=== PATIENT | female | born 1995 | race Two or more races ===

== ENCOUNTER 2018-06-05 14:12 | Inpatient (IN) | payer OTHER ==
[~2018-06-05] VITALS: Ht 165.1 cm; Wt 72.6 kg
[2018-06-05 14:33] VITALS: BP 131/78
--- NOTE | 2018-06-05 15:27 | Emergency Room Report ---
History of Present Illness General Chief Complaint: Pain Source: Patient Present Illness HPI Patient present with complaints of pain to the right lower rib cage area She reports that it has been ongoing for the past one week Patient reports that 2 different things happened she was hit with a knee in that same area 2 days before the pain came on Patient also reports having pain after working out at the gym Denies any lower abdominal pain denies any nausea or vomiting Denies any fevers or chills she has fairly specific discomfort to the right upper quadrant along with the lower lining of the rib cage Allergies: Coded Allergies: No Known Allergies (Unverified , 06/05/18) Patient History Past Medical History: see triage record Pertinent Family History: none Last Menstrual Period: now Reviewed Nursing Documentation: PMH: Agreed; PSxH: Agreed Nursing Documentation-PMH Past Medical History: No Stated History Review of Systems All Other Systems: negative except mentioned in HPI Physical Exam Vital Signs Date Time Temp Pulse Resp B/P (MAP) Pulse Ox O2 Delivery O2 Flow Rate FiO2 06/05/18 14:23 98.7 81 18 131/78 95 Room Air 98.8 Sp02 EP Interpretation: reviewed, normal General Appearance: well appearing, no apparent distress Head: normocephalic, atraumatic Eyes: bilateral eye PERRL, bilateral eye EOMI ENT: hearing grossly normal, normal pharynx Neck: supple Respiratory: lungs clear Cardiovascular #1: regular rate, rhythm, no edema Gastrointestinal: non tender Genitourinary: no CVA tenderness Musculoskeletal: back normal, other - Tender on palpation specific lower part of the mid right rib cage, no obvious ecchymosis Neurologic: alert, oriented x3 Skin: no rash Lymphatic: no adenopathy Medical Decision Making Diagnostic Impression: Primary Impression: Abdominal pain Additional Impression: evaluate appendicitis ER Course With the history exam and presentation, multiple differentials considered, including but not limited to appendicitis, gastritis, cholecystitis, diverticulitis Patient's white blood cell count is elevated CT imaging reveals an enlarged appendix with some stranding This would be concerning for appendicitis CT otherwise does not reveal any acute fractures On repeat examination patient has discomfort mainly in the right mid and upper abdominal region Given the elevated white blood cell count Given the patient's discomfort level she does require further surgical consultation Reviewing the CT with general surgery it does appear that the patient has a high riding appendix which could explain some of the discomfort in the mid abdomen as opposed to the right lower quadrant patient is admitted for further inpatient care and repeat evaluation, Labs Test 06/05/18 15:15 White Blood Count 13.0 K/UL (4.8-10.8) Red Blood Count 5.51 M/UL (4.20-5.40) Hemoglobin 14.3 G/DL (12.0-16.0) Hematocrit 45.4 % (37.0-47.0) Mean Corpuscular Volume 82 FL (80-99) Mean Corpuscular Hemoglobin 25.9 PG (27.0-31.0) Mean Corpuscular Hemoglobin Concent 31.4 G/DL (32.0-36.0) Red Cell Distribution Width 12.1 % (11.6-14.8) Platelet Count 393 K/UL (150-450) Mean Platelet Volume 6.8 FL (6.5-10.1) Neutrophils (%) (Auto) 78.9 % (45.0-75.0) Lymphocytes (%) (Auto) 13.3 % (20.0-45.0) Monocytes (%) (Auto) 6.5 % (1.0-10.0) Eosinophils (%) (Auto) 0.7 % (0.0-3.0) Basophils (%) (Auto) 0.7 % (0.0-2.0) Urine HCG, Qualitative Negative (NEGATIVE) Sodium Level 141 MMOL/L (136-145) Potassium Level 3.9 MMOL/L (3.5-5.1) Chloride Level 106 MMOL/L (98-107) Carbon Dioxide Level 26 MMOL/L (21-32) Anion Gap 9 mmol/L (5-15) Blood Urea Nitrogen 8 mg/dL (7-18) Creatinine 0.8 MG/DL (0.55-1.30) Estimat Glomerular Filtration Rate > 60 mL/min (>60) Glucose Level 99 MG/DL (74-106) Calcium Level 9.7 MG/DL (8.5-10.1) Total Bilirubin 0.3 MG/DL (0.2-1.0) Aspartate Amino Transf (AST/SGOT) 18 U/L (15-37) Alanine Aminotransferase (ALT/SGPT) 24 U/L (12-78) Alkaline Phosphatase 122 U/L (46-116) Total Protein 8.3 G/DL (6.4-8.2) Albumin 3.7 G/DL (3.4-5.0) Globulin 4.6 g/dL Albumin/Globulin Ratio 0.8 (1.0-2.7) Lipase 143 U/L (73-393) CT/MRI/US Diagnostic Results CT/MRI/US Diagnostic Results : Impression CT abdomen pelvis: Refer to report for full specific, enlarged appendix, stranding consideration for appendicitis Last Vital Signs Date Time Temp Pulse Resp B/P (MAP) Pulse Ox O2 Delivery O2 Flow Rate FiO2 06/05/18 14:33 98.8 18 131/78 95 Room Air 98.8 06/05/18 14:23 81 Status: improved Disposition: ADMITTED INPATIENT Condition: Serious Referrals: NOT CHOSEN IPA/,REFERRING (PCP) Brett Padilla DO Jun 05, 2018 15:27
[2018-06-05] MEDS ORDERED: Tylenol #3 tab (300mg/30mg) ORAL ONE (15:30)
[2018-06-05] MEDS ORDERED: Ketorolac 60mg Inj IM ONE (15:30)
[2018-06-05 15:38] LABS: BASOPHILS % (AUTO) 0.7 % (0.0-2.0); EOSINOPHILS % (AUTO) 0.7 % (0.0-3.0); HEMATOCRIT 45.4 % (37.0-47.0); HEMOGLOBIN 14.3 G/DL (12.0-16.0); LYMPHOCYTES % (AUTO) 13.3 % (20.0-45.0); MEAN CORPUSCULAR VOLUME 82 FL (80-99); MONOCYTES % (AUTO) 6.5 % (1.0-10.0); NEUTROPHILS % (AUTO) 78.9 % (45.0-75.0); PLATELET COUNT 393 K/UL (150-450); RED BLOOD COUNT 5.51 M/UL (4.20-5.40); RED CELL DISTRIBUTION WIDTH 12.1 % (11.6-14.8)
[2018-06-05 15:40] LABS: ANION GAP 9 mmol/L (5-15); BLOOD UREA NITROGEN 8 mg/dL (7-18); CALCIUM 9.7 MG/DL (8.5-10.1); CARBON DIOXIDE 26 MMOL/L (21-32); CHLORIDE 106 MMOL/L (98-107); CREATININE 0.8 MG/DL (0.55-1.30); POTASSIUM 3.9 MMOL/L (3.5-5.1); SODIUM 141 MMOL/L (136-145)
[2018-06-05 15:45] LABS: ALANINE AMINOTRANSFERASE 24 U/L (12-78); ALBUMIN 3.7 G/DL (3.4-5.0); ALBUMIN/GLOBULIN RATIO 0.8 (1.0-2.7); ALKALINE PHOSPHATASE 122 U/L (46-116); ASPARTATE AMINO TRANSFERASE 18 U/L (15-37); BILIRUBIN,TOTAL 0.3 MG/DL (0.2-1.0)
[2018-06-05 17:36] VITALS: BP 114/76
[2018-06-05] MEDS ORDERED: NAPROXEN250 MG ORAL (18:19)
[2018-06-05] MEDS ORDERED: ADVIL200 MG ORAL (18:19)
[2018-06-05 19:30] VITALS: BP 121/78
[2018-06-05 20:00] VITALS: BP 111/72
[2018-06-05 20:30] VITALS: BP 119/73
[2018-06-05] MEDS ORDERED: D5 1/2NS 1,000 ML IV SCH (20:37)
[2018-06-05] MEDS ORDERED: Morphine Sulfate 2mg/ml Inj IVP PRN (20:45)
[2018-06-05] MEDS ORDERED: Nitroglycerin Subl 0.4mg tab SL PRN (20:45)
[2018-06-05] MEDS ORDERED: Mylanta II UD 30ml ORAL PRN (20:45)
[2018-06-05] MEDS ORDERED: Miralax 17gm pkt ORAL PRN (20:45)
--- NOTE | 2018-06-05 21:09 | Consultation ---
History of Present Illness General Date patient seen: Jun 05, 2018 Chief Complaint: Pain Reason for Consultation: acute appendicitis Present Illness HPI 23 year old otherwise healthy female presents to ED with complaints of right sided abdominal pain. As per patient, she has had pain for 1 week that is not improving. States she was well 1 week ago until she sustained some trauma to her right thoracoabdominal area. Since pain with movement and while at the gym. Over the past 1-2 days has also had some abdominal discomfort and does recall some intermittent nausea but no emesis. She has had decreased appetite since as well. She and her mother decided that she should come in for evaluation. In ED noted to have leukocytosis with shift and CT scan with dilated appendix with periappendiceal stranding. surgery called to evaluate. patient seen, chart reviewed, patient examined. Allergies: Coded Allergies: No Known Allergies (Unverified , 06/05/18) Medication History Scheduled PRN Ibuprofen* (Advil*), 800 MG ORAL Q6H PRN for For Pain, (Reported) Naproxen* (Naprosyn*), 250 MG ORAL TWICE A DAY PRN for For Pain, (Reported) Patient History History Provided By: Patient, Medical Record, PMD Healthcare decision maker Resuscitation status Advanced Directive on File Past Medical/Surgical History Past Medical/Surgical History: (1) Acute appendicitis (2) Abdominal pain Review of Systems Constitutional: Denies: no symptoms, see HPI, chills, sweats, fever, malaise, weakness, other Eye: Denies: no symptoms, see HPI, eye pain, blurred vision, tearing, double vision, nose pain, nose congestion, acuity changes, discharge, other ENT: Denies: no symptoms, see HPI, ear pain, ear discharge, nose pain, nose congestion, throat pain, throat swelling, mouth pain, hearing loss, nasal discharge, other Respiratory: Denies: no symptoms, see HPI, cough, orthopnea, shortness of breath, stridor, wheezing, WHITAKER, sputum, other Cardiovascular: Denies: no symptoms, see HPI, chest pain, edema, palpitations, syncope, PND, other Gastrointestinal: Reports: abdominal pain, nausea Genitourinary: Denies: no symptoms, see HPI, discharge, dysuria, frequency, hematuria, pain, retention, incontinence, urgency, vag bleed/dc, other Musculoskeletal: Denies: no symptoms, see HPI, back pain, gout, joint pain, joint swelling, muscle pain, muscle stiffness, other Skin: Denies: no symptoms, see HPI, rash, change in color, change in hair/nails , dryness, lesions, other Psychiatric: Denies: no symptoms, see HPI, prior hx, anxiety, depressed feelings, emotional problems, SI, HI, hallucinations, other Neurological: Denies: no symptoms, see HPI, headache, numbness, paresthesia, seizure, tingling, tremors, focal weakness, syncope, dizziness, other Endocrine: Denies: no symptoms, see HPI, excessive sweating, flushing, intolerance to temperature, increased thirst, increased urine, unexplained weight loss, other Hematologic/Lymphatic: Denies: no symptoms, see HPI, anemia, blood clots, easy bleeding, easy bruising, swollen glands, diathesis, other Physical Exam General Appearance: WD/WN, no apparent distress, alert Lines, tubes and drains: peripheral HEENT: normocephalic, atraumatic, PERRL Neck: normal inspection Respiratory/Chest: lungs clear, normal breath sounds, no respiratory distress, no accessory muscle use, other - right lower thoracic rib tenderness Cardiovascular/Chest: normal rate, regular rhythm Abdomen: normal bowel sounds, non tender, soft, no organomegaly, no mass, other - discomfort in mid abdomen Extremities: normal inspection Skin Exam: normal pigmentation, warm/dry Neurologic: alert, oriented x 3 Last 24 Hour Vital Signs Date Time Temp Pulse Resp B/P (MAP) Pulse Ox O2 Delivery O2 Flow Rate FiO2 06/05/18 20:30 37.75577 68 18 119/73 100 Room Air 209.8 06/05/18 20:30 98.8 68 18 119/73 100 Room Air 98.8 06/05/18 19:30 98.5 72 18 121/78 98 Room Air 98.5 06/05/18 17:36 98.5 69 17 114/76 98 Room Air 98.5 06/05/18 16:33 98.5 06/05/18 16:04 98.5 06/05/18 15:34 98.8 06/05/18 15:34 98.8 06/05/18 14:33 98.8 18 131/78 95 Room Air 98.8 06/05/18 14:23 98.7 81 18 131/78 95 Room Air 98.8 Laboratory Tests Test 06/05/18 15:15 White Blood Count 13.0 K/UL (4.8-10.8) H Red Blood Count 5.51 M/UL (4.20-5.40) H Hemoglobin 14.3 G/DL (12.0-16.0) Hematocrit 45.4 % (37.0-47.0) Mean Corpuscular Volume 82 FL (80-99) Mean Corpuscular Hemoglobin 25.9 PG (27.0-31.0) L Mean Corpuscular Hemoglobin Concent 31.4 G/DL (32.0-36.0) L Red Cell Distribution Width 12.1 % (11.6-14.8) Platelet Count 393 K/UL (150-450) Mean Platelet Volume 6.8 FL (6.5-10.1) Neutrophils (%) (Auto) 78.9 % (45.0-75.0) H Lymphocytes (%) (Auto) 13.3 % (20.0-45.0) L Monocytes (%) (Auto) 6.5 % (1.0-10.0) Eosinophils (%) (Auto) 0.7 % (0.0-3.0) Basophils (%) (Auto) 0.7 % (0.0-2.0) Urine HCG, Qualitative Negative (NEGATIVE) Sodium Level 141 MMOL/L (136-145) Potassium Level 3.9 MMOL/L (3.5-5.1) Chloride Level 106 MMOL/L (98-107) Carbon Dioxide Level 26 MMOL/L (21-32) Anion Gap 9 mmol/L (5-15) Blood Urea Nitrogen 8 mg/dL (7-18) Creatinine 0.8 MG/DL (0.55-1.30) Estimat Glomerular Filtration Rate > 60 mL/min (>60) Glucose Level 99 MG/DL (74-106) Calcium Level 9.7 MG/DL (8.5-10.1) Total Bilirubin 0.3 MG/DL (0.2-1.0) Aspartate Amino Transf (AST/SGOT) 18 U/L (15-37) Alanine Aminotransferase (ALT/SGPT) 24 U/L (12-78) Alkaline Phosphatase 122 U/L (46-116) H Total Protein 8.3 G/DL (6.4-8.2) H Albumin 3.7 G/DL (3.4-5.0) Globulin 4.6 g/dL Albumin/Globulin Ratio 0.8 (1.0-2.7) L Lipase 143 U/L (73-393) Height (Feet): 5 Height (Inches): 5.00 Weight (Pounds): 160 Medications Current Medications Medications (Trade) Dose Ordered Sig/Peyton Route PRN Reason Start Time Stop Time Status Last Admin Dose Admin Acetaminophen (Tylenol) 650 mg Q4H PRN ORAL fever 06/05/18 20:45 07/05/18 20:44 Al Hydroxide/Mg Hydroxide (Mylanta II) 30 ml Q6H PRN ORAL dyspepsia 06/05/18 20:45 07/05/18 20:44 Dextrose (Dextrose 50%) 25 ml STAT PRN IV Hypoglycemia 06/05/18 20:45 07/05/18 20:44 Dextrose (Dextrose 50%) 50 ml STAT PRN IV Hypoglycemia 06/05/18 20:45 07/05/18 20:44 Dextrose/Lactated Ringer's 1,000 ml @ 100 mls/hr Q10H IV 06/05/18 20:30 07/05/18 20:29 Dextrose/Sodium Chloride 1,000 ml @ 75 mls/hr [id number] IV 06/05/18 20:37 07/05/18 20:36 Future Hold Diphenhydramine HCl (Benadryl) 25 mg Q6H PRN ORAL Itching/Pruritis 06/05/18 20:45 07/05/18 20:44 Heparin Sodium (Porcine) (Heparin 5000 units/ml) 5,000 units EVERY 12 HOURS SUBQ 06/05/18 21:00 07/05/18 20:59 Morphine Sulfate (Morphine Sulfate) 2 mg Q4H PRN IVP severe Pain (Pain Scale 7-10) 06/05/18 20:45 06/12/18 20:44 Nitroglycerin (Ntg) 0.4 mg Q5M X 3 DOSES PRN SL Prn Chest Pain 06/05/18 20:45 07/05/18 20:44 Ondansetron HCl (Zofran) 4 mg Q6H PRN IVP Nausea & Vomiting 06/05/18 20:45 07/05/18 20:44 Pantoprazole (Protonix) 40 mg DAILY IVP 06/06/18 09:00 07/06/18 08:59 Polyethylene Glycol (Miralax) 17 gm HSPRN PRN ORAL Constipation 06/05/18 20:45 07/05/18 20:44 Temazepam (Restoril) 15 mg HSPRN PRN ORAL Insomnia 06/05/18 20:45 06/12/18 20:44 Assessment/Plan Problem List: (1) Acute appendicitis ICD Codes: K35.80 - Unspecified acute appendicitis SNOMED: [id number] Qualifiers: Qualified Codes: K35.80 - Unspecified acute appendicitis (2) Abdominal pain ICD Codes: R10.9 - Unspecified abdominal pain SNOMED: [id number] Qualifiers: Qualified Codes: R10.33 - Periumbilical pain Status: stable Assessment/Plan 23 year old female with likely acute appendicitis. afebrile, HD stable, leukocytosis 13k, CT with dilated mid abdominal appendix with stranding. on exam does have some abdominal discomfort but no peritonitis. of note, she was just given narcotic pain medication just prior to my exam which likely is limiting exam as she states pain was worse prior. Will admit for monitoring. NPO IV fluids NO Antibiotics or narcotics -if pain severe and requires narcotics, please call me first If pain completely resolves and objective data resolves can potentially go home tomorrow if able to tolerate diet If pain and above does not resolve or worsens will proceed with kat chase. thank you for this consultation. will follow with Pilo Melchor Jun 05, 2018 21:09
[2018-06-05] MEDS: Heparin 5000 units/ml inj SUBQ SCH (21:55)
[2018-06-05] MEDS: Dextrose 5%/Lactated Ringer's 1,000 ML IV SCH (22:05)
[2018-06-06] VITALS (14 sets, daily range): BP systolic 110–135; BP diastolic 58–102
[2018-06-06 05:32] LABS: BASOPHILS % (AUTO) 0.9 % (0.0-2.0); EOSINOPHILS % (AUTO) 1.4 % (0.0-3.0); HEMATOCRIT 40.1 % (37.0-47.0); LYMPHOCYTES % (AUTO) 27.6 % (20.0-45.0); MEAN CORPUSCULAR VOLUME 82 FL (80-99); MONOCYTES % (AUTO) 9.3 % (1.0-10.0); NEUTROPHILS % (AUTO) 60.8 % (45.0-75.0); PLATELET COUNT 322 K/UL (150-450); RED BLOOD COUNT 4.88 M/UL (4.20-5.40); RED CELL DISTRIBUTION WIDTH 12.1 % (11.6-14.8); WHITE BLOOD COUNT 9.1 K/UL (4.8-10.8)
[2018-06-06 06:11] LABS: ALANINE AMINOTRANSFERASE 23 U/L (12-78); ALBUMIN 3.2 G/DL (3.4-5.0); ALBUMIN/GLOBULIN RATIO 0.9 (1.0-2.7); ALKALINE PHOSPHATASE 106 U/L (46-116); AMYLASE 37 U/L (25-115); ANION GAP 8 mmol/L (5-15); ASPARTATE AMINO TRANSFERASE 13 U/L (15-37); BILIRUBIN,TOTAL 0.3 MG/DL (0.2-1.0); BLOOD UREA NITROGEN 7 mg/dL (7-18); CALCIUM 8.9 MG/DL (8.5-10.1); CARBON DIOXIDE 27 MMOL/L (21-32); CHLORIDE 107 MMOL/L (98-107); CREATININE 0.7 MG/DL (0.55-1.30); POTASSIUM 4.1 MMOL/L (3.5-5.1); SODIUM 142 MMOL/L (136-145)
[2018-06-06] MEDS: Dextrose 5%/Lactated Ringer's 1,000 ML IV SCH ×2 (06:42→16:11)
--- NOTE | 2018-06-06 07:10 | Pre-Procedure Note/Attestation ---
Pre-Procedure Note/Attestation Complete Prior to Procedure Planned Procedure: not applicable Procedure Narrative: laparoscopic appendectomy, possible open Indications for Procedure Pre-Operative Diagnosis: acute appendicitis Attestation I attest that I discussed the nature of the procedure; its benefits; risks and complications; and alternatives (and the risks and benefits of such alternatives ), prior to the procedure, with the patient (or the patient's legal telemarketing representative). I attest that, if there was a reasonable possibility of needing a blood transfusion, the patient (or the patient's legal telemarketing representative) was given the [facility] standardized written summary, pursuant to the Guillaume Brent Blood Safety Act ([place] Health and Safety Code # 1645, as amended). I attest that I re-evaluated the patient just prior to the surgery and that there has been no change in the patient's H&P, except as documented below: Pilo Meeks Jun 06, 2018 07:10
--- NOTE | 2018-06-06 07:12 | General Progress Note ---
Progress Note Progress Note Surgery: patient seen and examined at bedside. held abx and narcotics overnight. states feeling right sided discomfort this AM. on exam has focal right mid abdominal tenderness with rebound and voluntary guarding. afebrile, HD stable, labs reviewed. discussed above findings with patient. given change in exam likely early acute appendicitis as anticipated. -to OR for lap vs open appendectomy -NPO -IV fluids -IV Abx -consent Pilo Meeks Jun 06, 2018 07:12
[2018-06-06] MEDS ORDERED: Midazolam 2mg/2ml Inj ONE (07:21)
[2018-06-06] MEDS ORDERED: Propofol 200mg/20ml IV ONE ×3 (07:22→08:46)
[2018-06-06] MEDS ORDERED: fentaNYL 100 mcg/2 mL IV ONE (07:22)
[2018-06-06] MEDS ORDERED: Lidocaine 1% MPF 10mg/ml 5ml ONE (07:22)
[2018-06-06] MEDS ORDERED: Sodium Chloride 10ml vial INJ ONE (07:27)
[2018-06-06] MEDS ORDERED: NS Irrig 1000ml ONE (07:30)
[2018-06-06] MEDS ORDERED: Sterile Water Irrig 1000ml IRRIG ONE (07:30)
[2018-06-06] MEDS ORDERED: LR 1000ml ONE (07:30)
[2018-06-06] MEDS ORDERED: EPINEPHrine 1mg/1ml Amp ONE (07:30)
[2018-06-06] MEDS ORDERED: NS Irrig 2000ml IRRIG ONE (07:30)
[2018-06-06] MEDS ORDERED: Bupivacaine 0.25% Inj 30ml INJ ONE (07:30)
[2018-06-06] MEDS ORDERED: Zemuron 50mg/5ml Inj IV ONE (07:51)
[2018-06-06] MEDS ORDERED: LR 1000ml 1,000 ML IVLG SCH (08:29)
[2018-06-06] MEDS ORDERED: DiphenhydrAMINE 50mg/ml Inj IVP PRN ×2 (08:30→11:03)
[2018-06-06] MEDS ORDERED: Meperidine 50mg/ml Inj(FOR RIGORS ONLY) IVP PRN (08:30)
[2018-06-06] MEDS ORDERED: LORazepam Inj 2mg/ml 1ml IV PRN (08:30)
[2018-06-06] MEDS: Piperacillin/Tazobactam 3.375 GM in D5W 110 ML IVPB SCH ×2 (08:30→14:25)
--- NOTE | 2018-06-06 08:33 | Anethesia Preoperative Eval ---
Anesthesia Pre-op PMH/ROS General Date of Evaluation: Jun 06, 2018 Time of Evaluation: 07:30 Anesthesiologist: Teetee ASA Score: ASA 1 Mallampati Score Class I : Soft palate, uvula, fauces, pillars visible Class II: Soft palate, uvula, fauces visible Class III: Soft palate, base of uvula visible Class IV: Only hard plate visible Mallampati Classification: Class II Surgeon: Jeanna Diagnosis: Acute appendicitis Surgical Procedure: Emercency lap appy Anesthesia History: none Family History: no anesthesia problems Allergies: Coded Allergies: No Known Allergies (Unverified , 06/05/18) Medications: see eMAR Past Medical History Cardiovascular: Denies: HTN, CAD, [place], valve dz, arrhythmia, other Pulmonary: Denies: asthma, COPD, JESSICA, other Gastrointestinal/Genitourinary: Denies: GERD, CRI, ESRD, other Neurologic/Psychiatric: Denies: dementia, CVA, depression/anxiety, TIA, other Endocrine: Denies: DM, hypothyroidism, steroids, other HEENT: Denies: cataract (L), cataract (R), glaucoma, SEM[place] (L), SEMINOLE (R), other Hematology/Immune: Denies: anemia, DVT, bleeding disorder, other Musculoskeletal/Integumentary: Denies: OA, RA, DJD, DDD, edema, other PMH Narrative: Denies significant PMH PSxH Narrative: No prior surgery Anesthesia Pre-op Phys. Exam Physician Exam Last Vital Signs Date Time Temp Pulse Resp B/P (MAP) Pulse Ox O2 Delivery O2 Flow Rate FiO2 06/06/18 04:00 97.9 70 18 127/77 (94) 99 97.9 06/05/18 23:17 Room Air Constitutional: NAD Neurologic: CN 2-12 intact Cardiovascular: RRR, no M/R/G Respiratory: CTA Gastrointestinal: S/NT/ND Airway Exam Mallampati Score: Class II MO: full ROM: full Teeth: intact Anesthesia Pre-op A/P Labs Hematology Test 06/05/18 15:15 06/06/18 05:10 White Blood Count 13.0 K/UL (4.8-10.8) H 9.1 K/UL (4.8-10.8) Red Blood Count 5.51 M/UL (4.20-5.40) H 4.88 M/UL (4.20-5.40) Hemoglobin 14.3 G/DL (12.0-16.0) 13.0 G/DL (12.0-16.0) Hematocrit 45.4 % (37.0-47.0) 40.1 % (37.0-47.0) Mean Corpuscular Volume 82 FL (80-99) 82 FL (80-99) Mean Corpuscular Hemoglobin 25.9 PG (27.0-31.0) L 26.6 PG (27.0-31.0) L Mean Corpuscular Hemoglobin Concent 31.4 G/DL (32.0-36.0) L 32.5 G/DL (32.0-36.0) Red Cell Distribution Width 12.1 % (11.6-14.8) 12.1 % (11.6-14.8) Platelet Count 393 K/UL (150-450) 322 K/UL (150-450) Mean Platelet Volume 6.8 FL (6.5-10.1) 7.0 FL (6.5-10.1) Neutrophils (%) (Auto) 78.9 % (45.0-75.0) H 60.8 % (45.0-75.0) Lymphocytes (%) (Auto) 13.3 % (20.0-45.0) L 27.6 % (20.0-45.0) Monocytes (%) (Auto) 6.5 % (1.0-10.0) 9.3 % (1.0-10.0) Eosinophils (%) (Auto) 0.7 % (0.0-3.0) 1.4 % (0.0-3.0) Basophils (%) (Auto) 0.7 % (0.0-2.0) 0.9 % (0.0-2.0) Coagulation Test 06/06/18 05:10 Activated Partial Thromboplast Time 32 SEC (23-33) Chemistry Test 06/05/18 15:15 06/06/18 05:10 Sodium Level 141 MMOL/L (136-145) 142 MMOL/L (136-145) Potassium Level 3.9 MMOL/L (3.5-5.1) 4.1 MMOL/L (3.5-5.1) Chloride Level 106 MMOL/L (98-107) 107 MMOL/L (98-107) Carbon Dioxide Level 26 MMOL/L (21-32) 27 MMOL/L (21-32) Anion Gap 9 mmol/L (5-15) 8 mmol/L (5-15) Blood Urea Nitrogen 8 mg/dL (7-18) 7 mg/dL (7-18) Creatinine 0.8 MG/DL (0.55-1.30) 0.7 MG/DL (0.55-1.30) Estimat Glomerular Filtration Rate > 60 mL/min (>60) > 60 mL/min (>60) Glucose Level 99 MG/DL (74-106) 100 MG/DL (74-106) Calcium Level 9.7 MG/DL (8.5-10.1) 8.9 MG/DL (8.5-10.1) Total Bilirubin 0.3 MG/DL (0.2-1.0) 0.3 MG/DL (0.2-1.0) Aspartate Amino Transf (AST/SGOT) 18 U/L (15-37) 13 U/L (15-37) L Alanine Aminotransferase (ALT/SGPT) 24 U/L (12-78) 23 U/L (12-78) Alkaline Phosphatase 122 U/L (46-116) H 106 U/L (46-116) Total Protein 8.3 G/DL (6.4-8.2) H 6.7 G/DL (6.4-8.2) Albumin 3.7 G/DL (3.4-5.0) 3.2 G/DL (3.4-5.0) L Globulin 4.6 g/dL 3.5 g/dL Albumin/Globulin Ratio 0.8 (1.0-2.7) L 0.9 (1.0-2.7) L Lipase 143 U/L (73-393) Amylase Level 37 U/L (25-115) Urine Test Test 06/05/18 15:15 Urine HCG, Qualitative Negative (NEGATIVE) Risk Assessment & Plan Assessment: Healthy female here for emergency lap appy Plan: GETA Status Change Before Surgery: No Pre-Antibiotics Drug: Ancef Given Within 1 Hr of Incision: Yes Time Given: 08:00 Guillaume Kingsley MD Jun 06, 2018 08:33
--- NOTE | 2018-06-06 08:39 | Diagnostic Imaging Report ---
Indication: Abdominal pain Technique: CT of the chest, abdomen and pelvis utilizing automated exposure control without contrast. Axial, sagittal and coronal reformats presented. CT dose: Total DLP 1294.65 mGycm; CTDI vol 20.09 mGy Comparison: None Findings: CT CHEST: There is no focal airspace consolidation, pleural effusion or pneumothorax. Heart size is within normal limits. There is no pericardial effusion. Some triangular soft tissue attenuation is noted in the anterior mediastinum, likely residual thymic tissue. No pathologically enlarged hilar or mediastinal lymphadenopathy. Thyroid is normal in appearance. No acute osseous abnormality identified. Similarly, no definite/displaced rib fracture identified. CT ABDOMEN/PELVIS: Please note that evaluation of the abdominal and pelvic viscera and vascular structures is limited without the use of intravenous and oral contrast. Within these limitations the following observations are made: Liver normal in size and contour. No focal hepatic mass lesion appreciated. Gallbladder unremarkable in appearance. No biliary ductal dilatation. Spleen, adrenal glands and pancreas unremarkable. Kidneys are symmetric in size. There is no urinary tract stone or hydronephrosis. Bladder is decompressed, limiting its evaluation. Approximately 2.5 cm right ovarian lesion, likely cyst. There is mild prominence of the mid portions of the appendix which measure up to 7 to 8 mm (axial images #120) with possible minimal adjacent stranding. Other portions of the appendix are normal in caliber. No free intraperitoneal air or fluid. No evidence of bowel obstruction. There is some small mesenteric lymph nodes which are likely reactive in etiology. No pathologically enlarged by imaging size criteria. No acute osseous abnormalities identified. Aorta normal in caliber. IMPRESSION: Limited exam without intravenous and oral contrast. Within these limitations: CT CHEST: * No focal airspace consolidation, pleural effusion or pneumothorax. * No acute fracture. CT ABDOMEN/PELVIS: * Midportion of the appendix is mildly prominent, measuring up to 7-8 mm in thickness, with questionable minimal adjacent stranding. Remaining portions of the appendix are normal in caliber. Finding's are equivocal. Correlate clinically to assess for the possibility of very early appendicitis. No associated small bowel obstruction, abscess or free intraperitoneal air. This corresponds with the statrad preliminary report. The CT scanner at [facility] is accredited by the [employer] and the scans are performed using protocols designed to limit radiation exposure to as low as reasonably achievable to attain images of sufficient resolution adequate for diagnostic evaluation.
[2018-06-06] MEDS: Pantoprazole Inj IVP SCH (09:00)
[2018-06-06] MEDS: Heparin 5000 units/ml inj SUBQ SCH ×2 (09:00→21:13)
--- NOTE | 2018-06-06 09:06 | Brief Operative Note ---
Immediate Post Operative Note Operative Note Pre-op Diagnosis: acute appendicitis Procedure: laparoscopic appendectomy Post-op Diagnosis: same as pre-op Surgeon: alicia Anesthesiologist: Axel Anesthesia: general, local Specimen: yes Complications: none Condition: stable Fluids: see records Estimated Blood Loss: minimal Drains: none Implant(s) used?: No Pilo Meeks Jun 06, 2018 09:06
--- NOTE | 2018-06-06 09:14 | Immediate Post-Op Evaluation ---
Immediate Post-Op Evalulation Immediate Post-Op Evalulation Procedure: Emergency lap appy Date of Evaluation: Jun 06, 2018 Time of Evaluation: 09:15 IV Fluids: 600 Blood Pressure Systolic: 112 Blood Pressure Diastolic: 62 Pulse Rate: 84 Respiratory Rate: 19 O2 Sat by Pulse Oximetry: 100 Temperature (Fahrenheit): 98.4 Pain Score (1-10): 0 Nausea: No Vomiting: No Complications No complication Patient Status: reacts, patent, extubated, none Drug: Ancef Given Within 1 Hr of Incision: Yes Time Given: 08:00 Guillaume Kingsley MD Jun 06, 2018 09:14
[2018-06-06] MEDS ORDERED: Morphine Sulfate 4mg/ml Inj IVP PRN (10:56)
[2018-06-06] MEDS ORDERED: Morphine Sulfate 2mg/ml Inj IVP PRN (10:57)
[2018-06-06] MEDS ORDERED: HYDROcodone/Acetamin 10/325 tab ORAL PRN (10:59)
[2018-06-06] MEDS ORDERED: Norco 5mg/325mg tab ORAL PRN (10:59)
[2018-06-06] MEDS ORDERED: Ketorolac 30mg Inj IV PRN (11:00)
[2018-06-06] MEDS ORDERED: Milk of Magnesia 30ml Ud ORAL PRN (11:01)
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
--- NOTE | 2018-06-06 13:09 | Consultation ---
History of Present Illness General Date patient seen: Jun 06, 2018 Chief Complaint: Pain Referring physician: ARASH ORTEGA Reason for Consultation: acute appendicitis Present Illness HPI 23 year old female without any PMHx presented with complaints of pain to the right lower rib cage area She reports that it has been ongoing for the past one week. she was diagnosed to have acute appendicitis and underwent appendectomy. She is admitted to surgical floor for post op care. Allergies: Coded Allergies: No Known Allergies (Unverified , 06/05/18) Medication History Scheduled PRN Ibuprofen* (Advil*), 800 MG ORAL Q6H PRN for For Pain, (Reported) Naproxen* (Naprosyn*), 250 MG ORAL TWICE A DAY PRN for For Pain, (Reported) Patient History Healthcare decision maker Resuscitation status Full Code Advanced Directive on File No Review of Systems All Other Systems: negative except mentioned in HPI Physical Exam General Appearance: WD/WN, no apparent distress Lines, tubes and drains: peripheral HEENT: normocephalic, atraumatic Neck: non-tender, normal alignment Respiratory/Chest: chest wall non-tender, lungs clear Breasts: no masses Cardiovascular/Chest: normal peripheral pulses, normal rate Abdomen: normal bowel sounds Genitourinary/Rectal: normal genital exam Last 24 Hour Vital Signs Date Time Temp Pulse Resp B/P (MAP) Pulse Ox O2 Delivery O2 Flow Rate FiO2 06/06/18 12:00 98.1 75 20 116/65 (82) 96 98.1 75 06/06/18 10:45 98.1 79 18 116/65 (82) 96 98.1 06/06/18 10:15 98.0 73 17 114/65 100 Nasal Cannula 3 98.0 06/06/18 10:00 68 15 114/67 100 Nasal Cannula 3 06/06/18 09:45 68 17 117/64 100 Simple Mask 6 06/06/18 09:30 87 18 114/58 100 Simple Mask 6 06/06/18 09:20 80 19 110/59 100 Simple Mask 6 06/06/18 09:15 83 21 113/63 100 Simple Mask 6 06/06/18 09:14 209.1 84 19 100 06/06/18 09:10 98.4 84 19 112/62 100 Simple Mask 6 98.4 06/06/18 09:00 Room Air 06/06/18 04:00 97.9 70 18 127/77 (94) 99 97.9 06/06/18 00:00 98.0 58 18 115/65 (82) 98 98.0 06/05/18 23:17 Room Air 06/05/18 20:30 37.12784 68 18 119/73 100 Room Air 209.8 06/05/18 20:30 98.8 68 18 119/73 100 Room Air 98.8 06/05/18 20:00 98.9 63 18 111/72 (85) 99 98.9 06/05/18 19:30 98.5 72 18 121/78 98 Room Air 98.5 06/05/18 17:36 98.5 69 17 114/76 98 Room Air 98.5 06/05/18 16:33 98.5 06/05/18 16:04 98.5 06/05/18 15:34 98.8 06/05/18 15:34 98.8 06/05/18 14:33 98.8 18 131/78 95 Room Air 98.8 06/05/18 14:23 98.7 81 18 131/78 95 Room Air 98.8 Intake and Output 06/05/18 06/06/18 19:00 07:00 Intake Total 0 ml 1000 ml Balance 0 ml 1000 ml Intake Oral 0 ml IV Total 1000 ml # Voids 2 Laboratory Tests Test 06/05/18 15:15 06/06/18 05:10 White Blood Count 13.0 K/UL (4.8-10.8) H 9.1 K/UL (4.8-10.8) Red Blood Count 5.51 M/UL (4.20-5.40) H 4.88 M/UL (4.20-5.40) Hemoglobin 14.3 G/DL (12.0-16.0) 13.0 G/DL (12.0-16.0) Hematocrit 45.4 % (37.0-47.0) 40.1 % (37.0-47.0) Mean Corpuscular Volume 82 FL (80-99) 82 FL (80-99) Mean Corpuscular Hemoglobin 25.9 PG (27.0-31.0) L 26.6 PG (27.0-31.0) L Mean Corpuscular Hemoglobin Concent 31.4 G/DL (32.0-36.0) L 32.5 G/DL (32.0-36.0) Red Cell Distribution Width 12.1 % (11.6-14.8) 12.1 % (11.6-14.8) Platelet Count 393 K/UL (150-450) 322 K/UL (150-450) Mean Platelet Volume 6.8 FL (6.5-10.1) 7.0 FL (6.5-10.1) Neutrophils (%) (Auto) 78.9 % (45.0-75.0) H 60.8 % (45.0-75.0) Lymphocytes (%) (Auto) 13.3 % (20.0-45.0) L 27.6 % (20.0-45.0) Monocytes (%) (Auto) 6.5 % (1.0-10.0) 9.3 % (1.0-10.0) Eosinophils (%) (Auto) 0.7 % (0.0-3.0) 1.4 % (0.0-3.0) Basophils (%) (Auto) 0.7 % (0.0-2.0) 0.9 % (0.0-2.0) Urine HCG, Qualitative Negative (NEGATIVE) Sodium Level 141 MMOL/L (136-145) 142 MMOL/L (136-145) Potassium Level 3.9 MMOL/L (3.5-5.1) 4.1 MMOL/L (3.5-5.1) Chloride Level 106 MMOL/L (98-107) 107 MMOL/L (98-107) Carbon Dioxide Level 26 MMOL/L (21-32) 27 MMOL/L (21-32) Anion Gap 9 mmol/L (5-15) 8 mmol/L (5-15) Blood Urea Nitrogen 8 mg/dL (7-18) 7 mg/dL (7-18) Creatinine 0.8 MG/DL (0.55-1.30) 0.7 MG/DL (0.55-1.30) Estimat Glomerular Filtration Rate > 60 mL/min (>60) > 60 mL/min (>60) Glucose Level 99 MG/DL (74-106) 100 MG/DL (74-106) Calcium Level 9.7 MG/DL (8.5-10.1) 8.9 MG/DL (8.5-10.1) Total Bilirubin 0.3 MG/DL (0.2-1.0) 0.3 MG/DL (0.2-1.0) Aspartate Amino Transf (AST/SGOT) 18 U/L (15-37) 13 U/L (15-37) L Alanine Aminotransferase (ALT/SGPT) 24 U/L (12-78) 23 U/L (12-78) Alkaline Phosphatase 122 U/L (46-116) H 106 U/L (46-116) Total Protein 8.3 G/DL (6.4-8.2) H 6.7 G/DL (6.4-8.2) Albumin 3.7 G/DL (3.4-5.0) 3.2 G/DL (3.4-5.0) L Globulin 4.6 g/dL 3.5 g/dL Albumin/Globulin Ratio 0.8 (1.0-2.7) L 0.9 (1.0-2.7) L Lipase 143 U/L (73-393) Activated Partial Thromboplast Time 32 SEC (23-33) Amylase Level 37 U/L (25-115) Height (Feet): 5 Height (Inches): 5.00 Weight (Pounds): 160 Medications Current Medications Medications (Trade) Dose Ordered Sig/Peyton Route PRN Reason Start Time Stop Time Status Last Admin Dose Admin Acetaminophen (Tylenol) 650 mg Q6H PRN ORAL Mild Pain (Pain Scale 1-3) 06/06/18 10:58 07/06/18 10:57 Acetaminophen/ Hydrocodone Bitart ([place] 10/325) 1 tab Q4H PRN ORAL Severe Pain (Pain Scale 7-10) 06/06/18 10:59 06/13/18 10:58 Acetaminophen/ Hydrocodone Bitart ([place] 5/325) 1 tab Q4H PRN ORAL Moderate Pain (Pain Scale 4-6) 06/06/18 10:59 06/13/18 10:58 Al Hydroxide/Mg Hydroxide (Mylanta II) 30 ml Q6H PRN ORAL dyspepsia 06/05/18 20:45 07/05/18 20:44 Al Hydroxide/Mg Hydroxide (Mylanta) 15 ml Q6H PRN ORAL DYSPEPSIA 06/06/18 11:02 07/06/18 11:01 Cefazolin Sodium 2 gm/Dextrose 110 ml @ 220 mls/hr Q8H IV 06/06/18 16:00 06/07/18 00:29 Dextrose (Dextrose 50%) 25 ml STAT PRN IV Hypoglycemia 06/05/18 20:45 07/05/18 20:44 Dextrose (Dextrose 50%) 50 ml STAT PRN IV Hypoglycemia 06/05/18 20:45 07/05/18 20:44 Dextrose/Lactated Ringer's 1,000 ml @ 100 mls/hr Q10H IV 06/05/18 20:30 07/05/18 20:29 06/06/18 06:42 Diphenhydramine HCl (Benadryl) 12.5 mg Q6H PRN IVP Itching/Pruritis 06/06/18 11:03 07/06/18 11:02 Docusate Sodium (Colace) 100 mg TWICE A DAY ORAL 06/06/18 18:00 07/06/18 17:59 Heparin Sodium (Porcine) (Heparin 5000 units/ml) 5,000 units EVERY 12 HOURS SUBQ 06/05/18 21:00 07/05/18 20:59 06/05/18 21:55 Ketorolac Tromethamine (Toradol 30mg) 30 mg Q6H PRN IV For Breakthrough pain 06/06/18 11:00 06/11/18 10:59 Magnesium Hydroxide (Mom) 30 ml BIDPRN PRN ORAL Constipation 06/06/18 11:01 07/06/18 11:00 Morphine Sulfate (Morphine Sulfate) 1 mg Q4H PRN IVP pain scale 1-3 06/06/18 10:57 06/13/18 10:56 Morphine Sulfate (Morphine Sulfate) 2 mg Q4H PRN IVP pain scale 4-6 06/06/18 10:56 06/13/18 10:55 Morphine Sulfate (Morphine Sulfate) 4 mg Q4H PRN IVP pain score 7-10 06/06/18 10:56 06/13/18 10:55 06/06/18 12:10 Nitroglycerin (Ntg) 0.4 mg Q5M X 3 DOSES PRN SL Prn Chest Pain 7/22/18 20:45 07/05/18 20:44 Ondansetron HCl (Zofran) 4 mg Q6H PRN IVP Nausea & Vomiting 06/06/18 11:00 07/06/18 10:59 Pantoprazole (Protonix) 40 mg DAILY IVP 06/06/18 09:00 07/06/18 08:59 Piperacillin Sod/ Tazobactam Sod 3.375 gm/Dextrose 110 ml @ 27.5 mls/hr EVERY 8 HOURS IVPB 06/06/18 08:30 06/11/18 08:29 Polyethylene Glycol (Miralax) 17 gm HSPRN PRN ORAL Constipation 06/06/18 21:00 07/05/18 20:44 Temazepam (Restoril) 15 mg HSPRN PRN ORAL Insomnia 06/05/18 20:45 06/12/18 20:44 Assessment/Plan Problem List: (1) Acute appendicitis ICD Codes: K35.80 - Unspecified acute appendicitis SNOMED: [id number] Qualifiers: Qualified Codes: K35.80 - Unspecified acute appendicitis Assessment/Plan symptomatic treatment check electrolytes advance diet as tolerated. dvt prophylaxis Cain Laird MD Jun 06, 2018 13:09
[2018-06-06] MEDS: ceFAZolin sod 2 GM in D5W 110 ML IV SCH ×2 (16:11→23:59)
[2018-06-06] MEDS: Morphine Sulfate 2mg/ml Inj IVP PRN ×2 (17:56→22:06)
[2018-06-06] MEDS: Docusate 100mg cap ORAL SCH (18:36)
--- NOTE | 2018-06-06 19:10 | Consultation ---
History of Present Illness General Date patient seen: Jun 06, 2018 Chief Complaint: Pain Referring physician: ARASH ORTEGA Reason for Consultation: acute appendicitis Present Illness HPI 23 y/o F with no prior medical history presents to ED on 06/05 with intermittent R lower rib cage pain and nausea for 1 week. +decreased appetite. Found to have appendicitis and underwent appendectomy today. Denies vomiting, f/c. Allergies: Coded Allergies: No Known Allergies (Unverified , 06/05/18) Medication History Scheduled PRN Ibuprofen* (Advil*), 800 MG ORAL Q6H PRN for For Pain, (Reported) Naproxen* (Naprosyn*), 250 MG ORAL TWICE A DAY PRN for For Pain, (Reported) Patient History Healthcare decision maker Resuscitation status Full Code Advanced Directive on File No Patient History Narrative Pmhx: as above Shx: reviewed Fhx: non contributory Physical Exam Physical Exam Narrative General Appearance: WD/WN, no apparent distress, alert Lines, tubes and drains: peripheral HEENT: normocephalic, atraumatic, PERRL Neck: normal inspection Respiratory/Chest: lungs clear, normal breath sounds, no respiratory distress, no accessory muscle use, other - right lower thoracic rib tenderness Cardiovascular/Chest: normal rate, regular rhythm Abdomen: normal bowel sounds, non tender, soft, no organomegaly, no mass, other - discomfort in mid abdomen Extremities: normal inspection Skin Exam: normal pigmentation, warm/dry Neurologic: alert, oriented x 3 Last 24 Hour Vital Signs Date Time Temp Pulse Resp B/P (MAP) Pulse Ox O2 Delivery O2 Flow Rate FiO2 06/06/18 14:36 97.7 88 20 117/79 (92) 96 97.7 06/06/18 12:00 98.1 75 20 116/65 (82) 96 98.1 75 06/06/18 10:45 98.1 79 18 116/65 (82) 96 98.1 06/06/18 10:15 98.0 73 17 114/65 100 Nasal Cannula 3 98.0 06/06/18 10:00 68 15 114/67 100 Nasal Cannula 3 06/06/18 09:45 68 17 117/64 100 Simple Mask 6 06/06/18 09:30 87 18 114/58 100 Simple Mask 6 06/06/18 09:20 80 19 110/59 100 Simple Mask 6 06/06/18 09:15 83 21 113/63 100 Simple Mask 6 06/06/18 09:14 209.1 84 19 100 06/06/18 09:10 98.4 84 19 112/62 100 Simple Mask 6 98.4 06/06/18 09:00 Room Air 06/06/18 04:00 97.9 70 18 127/77 (94) 99 97.9 06/06/18 00:00 98.0 58 18 115/65 (82) 98 98.0 06/05/18 23:17 Room Air 06/05/18 20:30 37.80383 68 18 119/73 100 Room Air 209.8 06/05/18 20:30 98.8 68 18 119/73 100 Room Air 98.8 06/05/18 20:00 98.9 63 18 111/72 (85) 99 98.9 06/05/18 19:30 98.5 72 18 121/78 98 Room Air 98.5 Intake and Output 06/05/18 06/06/18 19:00 07:00 Intake Total 0 ml 1000 ml Balance 0 ml 1000 ml Intake Oral 0 ml IV Total 1000 ml # Voids 2 Laboratory Tests Test 06/06/18 05:10 White Blood Count 9.1 K/UL (4.8-10.8) Red Blood Count 4.88 M/UL (4.20-5.40) Hemoglobin 13.0 G/DL (12.0-16.0) Hematocrit 40.1 % (37.0-47.0) Mean Corpuscular Volume 82 FL (80-99) Mean Corpuscular Hemoglobin 26.6 PG (27.0-31.0) L Mean Corpuscular Hemoglobin Concent 32.5 G/DL (32.0-36.0) Red Cell Distribution Width 12.1 % (11.6-14.8) Platelet Count 322 K/UL (150-450) Mean Platelet Volume 7.0 FL (6.5-10.1) Neutrophils (%) (Auto) 60.8 % (45.0-75.0) Lymphocytes (%) (Auto) 27.6 % (20.0-45.0) Monocytes (%) (Auto) 9.3 % (1.0-10.0) Eosinophils (%) (Auto) 1.4 % (0.0-3.0) Basophils (%) (Auto) 0.9 % (0.0-2.0) Activated Partial Thromboplast Time 32 SEC (23-33) Sodium Level 142 MMOL/L (136-145) Potassium Level 4.1 MMOL/L (3.5-5.1) Chloride Level 107 MMOL/L (98-107) Carbon Dioxide Level 27 MMOL/L (21-32) Anion Gap 8 mmol/L (5-15) Blood Urea Nitrogen 7 mg/dL (7-18) Creatinine 0.7 MG/DL (0.55-1.30) Estimat Glomerular Filtration Rate > 60 mL/min (>60) Glucose Level 100 MG/DL (74-106) Calcium Level 8.9 MG/DL (8.5-10.1) Total Bilirubin 0.3 MG/DL (0.2-1.0) Aspartate Amino Transf (AST/SGOT) 13 U/L (15-37) L Alanine Aminotransferase (ALT/SGPT) 23 U/L (12-78) Alkaline Phosphatase 106 U/L (46-116) Total Protein 6.7 G/DL (6.4-8.2) Albumin 3.2 G/DL (3.4-5.0) L Globulin 3.5 g/dL Albumin/Globulin Ratio 0.9 (1.0-2.7) L Amylase Level 37 U/L (25-115) Height (Feet): 5 Height (Inches): 5.00 Weight (Pounds): 160 Medications Current Medications Medications (Trade) Dose Ordered Sig/Peyton Route PRN Reason Start Time Stop Time Status Last Admin Dose Admin Acetaminophen (Tylenol) 650 mg Q6H PRN ORAL Mild Pain (Pain Scale 1-3) 06/06/18 10:58 07/06/18 10:57 Acetaminophen/ Hydrocodone Bitart ([place] 10/325) 1 tab Q4H PRN ORAL Severe Pain (Pain Scale 7-10) 06/06/18 10:59 06/13/18 10:58 Acetaminophen/ Hydrocodone Bitart ([place] 5/325) 1 tab Q4H PRN ORAL Moderate Pain (Pain Scale 4-6) 06/06/18 10:59 06/13/18 10:58 Al Hydroxide/Mg Hydroxide (Mylanta II) 30 ml Q6H PRN ORAL dyspepsia 06/05/18 20:45 07/05/18 20:44 Al Hydroxide/Mg Hydroxide (Mylanta) 15 ml Q6H PRN ORAL DYSPEPSIA 06/06/18 11:02 07/06/18 11:01 Cefazolin Sodium 2 gm/Dextrose 110 ml @ 220 mls/hr Q8H IV 06/06/18 16:00 06/07/18 00:29 06/06/18 16:11 Dextrose (Dextrose 50%) 25 ml STAT PRN IV Hypoglycemia 06/05/18 20:45 07/05/18 20:44 Dextrose (Dextrose 50%) 50 ml STAT PRN IV Hypoglycemia 06/05/18 20:45 07/05/18 20:44 Dextrose/Lactated Ringer's 1,000 ml @ 100 mls/hr Q10H IV 06/05/18 20:30 07/05/18 20:29 06/06/18 16:11 Diphenhydramine HCl (Benadryl) 12.5 mg Q6H PRN IVP Itching/Pruritis 06/06/18 11:03 07/06/18 11:02 Docusate Sodium (Colace) 100 mg TWICE A DAY ORAL 06/06/18 18:00 07/06/18 17:59 06/06/18 18:36 Heparin Sodium (Porcine) (Heparin 5000 units/ml) 5,000 units EVERY 12 HOURS SUBQ 06/05/18 21:00 07/05/18 20:59 06/05/18 21:55 Ketorolac Tromethamine (Toradol 30mg) 30 mg Q6H PRN IV For Breakthrough pain 06/06/18 11:00 06/11/18 10:59 Magnesium Hydroxide (Mom) 30 ml BIDPRN PRN ORAL Constipation 06/06/18 11:01 07/06/18 11:00 Morphine Sulfate (Morphine Sulfate) 1 mg Q4H PRN IVP pain scale 1-3 06/06/18 10:57 06/13/18 10:56 Morphine Sulfate (Morphine Sulfate) 2 mg Q4H PRN IVP pain scale 4-6 06/06/18 10:56 06/13/18 10:55 06/06/18 17:56 Morphine Sulfate (Morphine Sulfate) 4 mg Q4H PRN IVP pain score 7-10 06/06/18 10:56 06/13/18 10:55 06/06/18 12:10 Nitroglycerin (Ntg) 0.4 mg Q5M X 3 DOSES PRN SL Prn Chest Pain 06/05/18 20:45 07/05/18 20:44 Ondansetron HCl (Zofran) 4 mg Q6H PRN IVP Nausea & Vomiting 06/06/18 11:00 07/06/18 10:59 Pantoprazole (Protonix) 40 mg DAILY IVP 06/06/18 09:00 07/06/18 08:59 Piperacillin Sod/ Tazobactam Sod 3.375 gm/Dextrose 110 ml @ 27.5 mls/hr EVERY 8 HOURS IVPB 06/06/18 08:30 06/11/18 08:29 06/06/18 14:25 Polyethylene Glycol (Miralax) 17 gm HSPRN PRN ORAL Constipation 06/06/18 21:00 07/05/18 20:44 Temazepam (Restoril) 15 mg HSPRN PRN ORAL Insomnia 06/05/18 20:45 06/12/18 20:44 Assessment/Plan Assessment/Plan Abx: Ancef 06/06- Zosyn 06/06 Assessment: Acute uncomplicated appendicitis -s/p lap appendectomy 06/06 -CT abd/p: Limited exam without intravenous and oral contrast. Within these limitations: CT CHEST:* No focal airspace consolidation, pleural effusion or pneumothorax. * No acute fracture. CT ABDOMEN/PELVIS:* Midportion of the appendix is mildly prominent, measuring up to 7-8 mm in thickness, with questionable minimal adjacent stranding. Remaining portions of the appendix are normal in caliber. Finding's are equivocal. Correlate clinically to assess for the possibility of very early appendicitis. No associated small bowel obstruction, abscess or free intraperitoneal air. Mild leukocytosis, resolved -afebrile R shoulder injection site reaction- no signs of infection Plan: -D/c ZOsyn #1 -Continue senait-op Ancef -ice pack for R shoulder -f/u cx -Monitor CBC/CMP, temperatures -wound care per hospital protocol -Sx f/u Thank you for this consultation. Will continue to follow along with you. Discussed with SHIRA. Beatrice Aparicio M.D. Jun 06, 2018 19:10
[2018-06-06] MEDS ORDERED: Miralax 17gm pkt ORAL PRN (21:00)
--- NOTE | 2018-06-06 21:45 | Operative Note - Dictated ---
DATE OF OPERATION: 06/06/2018 PREOPERATIVE DIAGNOSIS: Acute appendicitis. POSTOPERATIVE DIAGNOSIS: Acute appendicitis. OPERATION PERFORMED: Laparoscopic appendectomy. ATTENDING SURGEON: Pilo Meeks M.D. HIGH CLIMBER: None. ANESTHESIOLOGIST: Guillaume Kingsley M.D. ANESTHESIA: General GEOSPATIAL SPECIALIST. ESTIMATED BLOOD LOSS: Minimal. IV FLUIDS: Please see anesthesia records. SPECIMENS: Appendix sent to pathology for review. COMPLICATIONS: None. DRAINS: None. IMPLANTS: None. WOUND CLASSIFICATION: Class III. COUNTS: Sponge and needle count correct x2. ANTIBIOTICS: The patient given 2 g Ancef IV one hour prior to cut time. INDICATIONS FOR PROCEDURE: This is a 23-year-old female, who presented to the emergency room to [facility] complaining of worsening right-sided thoracoabdominal pain. She has a very interesting story with initial trauma little over a week ago to the right thoracoabdominal area, which she assumed began better, but has not gotten better and just prior to coming to the emergency department, worsened with some nausea and discomfort. In the emergency department, she was noted to have a right-sided thoracoabdominal pain, leukocytosis of 13,000, and CT scan consistent with early acute appendicitis. The patient was given narcotic pain medication just prior to my evaluation, therefore did not have significant pain on examination and decision was made to admit the patient for serial examinations without pain medications and antibiotics and subsequent few hours into reexamination in the morning, the patient stated that she was having more discomfort in the right abdominal area and on examination, did have focal right mid abdominal tenderness with rebound and voluntary guarding. Given these findings, surgery was indicated and recommended. The risks, benefits, and alternatives were discussed with the patient in detail who consented to surgery. OPERATIVE NOTE: The patient was taken to the operating room and placed on the operating table in supine position with bilateral arms out. All bony prominences well padded with gel pads. SCDs were placed. Preoperative time-out was taken identifying the patient, procedure, operative staff, and surgical staff. General anesthesia was induced. The patient was intubated. The abdomen was clipped, prepped, and draped in the standard surgical fashion. An infraumbilical incision was made using a fresh #11 scalpel and carried down to the fascia, which was elevated and incised. Entry into the abdomen was confirmed using the open Ranjith technique without complication. A 12-mm Ranjith trocar was inserted and the abdomen was insufflated to 12 to 15 mmHg. The patient tolerated the insufflation well. The patient was placed in a reverse Trendelenburg with left side down position. Secondary trocars were placed under direct visualization beginning with a 5 mm suprapubic followed by a 12 mm left lower quadrant. Laparoscopic graspers were used to identify the cecum and the confluence their off, which identified the base of the appendix. The base of the appendix looked otherwise healthy of the tip. The appendix and the mid appendix was fairly dilated as compared to the proximal and distal ends and did have surrounding inflammatory tissue. The base of the appendix was identified and a window was made in the base of the appendix. A laparoscopic linear stapler was then used to divide the base of the appendix. The mesoappendix was then freed and divided using a laparoscopic linear stapler as well. The appendix was placed in endoscopic retrieval bag and removed through the left lower quadrant port site. The area was inspected and staple lines were noted to be hemostatic and intact. No bleeding was identified. No purulent fluid was noted in the abdomen. There was some serous fluid noted in the abdomen upon initial entry. No other abnormalities noted and began the conclusion of our procedure. Secondary trocars were removed under direct visualization. The umbilical trocar site was removed and the umbilical fascia site closed using a 0 [id number] Vicryl suture. The remaining skin incisions were closed using 4-0 Monocryl subcuticular interrupted sutures. Skin glue and Steri-Strips were applied. Local anesthetic was infiltrated throughout the procedure in the proposed skin incisions 4 port sites as necessary. The patient tolerated the procedure well, was extubated and taken to the postanesthetic care unit in stable condition. Pilo Meeks M.D. DR: DEONDRE JOB#: [id number] CC:
--- NOTE | 2018-06-06 22:00 | History and Physical Report ---
DATE OF ADMISSION: 06/05/2018 CONSULTANTS: 1. Pilo Meeks M.D. 2. Cain Laird M.D. CHIEF COMPLAINT: Appendicitis status post appendectomy. BRIEF HISTORY: This is a 23-year-old female with 1 week increased abdominal pain, slight nausea, no vomiting. The patient's pain became unbearable, came to [place] last night, diagnosed with appendicitis and admitted to medical floor. This morning, the patient had surgery per Dr. Meeks. Currently, calm in bed, postop, O2 NC, slightly lethargic. PAST MEDICAL HISTORY: Nothing. PAST SURGICAL HISTORY: None. MEDICATIONS: MiraLAX, Colace, cefazolin, diphenhydramine, Mylanta, Tylenol, Toradol, Zofran, Daphne, and Protonix. ALLERGIES: Denies. SOCIAL HISTORY: Positive smoke. Occasional alcohol. No intravenous drug abuse. FAMILY HISTORY: Noncontributory. PHYSICAL EXAMINATION: GENERAL: Calm in bed, oriented x3, in no acute distress. Slight abdominal discomfort. VITAL SIGNS: Temperature is 98 degrees, pulse 75, respirations 20, blood pressure 116/65. CARDIOVASCULAR: No murmur. LUNGS: Distant and clear. ABDOMEN: Bowel sounds negative. Slightly tender. No guarding. No rigidity. No rebound. EXTREMITIES: No cyanosis or edema. NEUROLOGIC: The patient moves all extremities, slightly weak. LABORATORY AND DIAGNOSTIC DATA: Yesterday, white count was 13, today is 9.1. Today, CBC is normal. BMP shows AST 13 and albumin 3.2, otherwise, BMP is normal. PTT is 32. Urinalysis showed urine HCG is negative. ASSESSMENT: Appendicitis, status post appendectomy. PLAN: 1. Continue previous medications. 2. Pain control. 3. Advance diet as tolerated. 4. O2 and pulmonary treatment. 5. CBC and BMP in the morning. 6. Antibiotic per Infectious Disease, antibiotic as needed. 7. If cleared by Surgery, we will discharge the patient tomorrow. We will continue to follow this patient. Cristian Coffey D.O. DR: SUNG JOB#: [id number] CC:
[2018-06-07] VITALS: BP 115/75
[2018-06-07] MEDS: Dextrose 5%/Lactated Ringer's 1,000 ML IV SCH ×2 (02:30→12:40)
[2018-06-07 04:00] VITALS: BP 118/70
[2018-06-07 06:31] LABS: BASOPHILS % (AUTO) 0.8 % (0.0-2.0); EOSINOPHILS % (AUTO) 0.4 % (0.0-3.0); HEMATOCRIT 39.7 % (37.0-47.0); HEMOGLOBIN 12.7 G/DL (12.0-16.0); MEAN CORPUSCULAR VOLUME 81 FL (80-99); MONOCYTES % (AUTO) 11.4 % (1.0-10.0); NEUTROPHILS % (AUTO) 72.4 % (45.0-75.0); PLATELET COUNT 296 K/UL (150-450); RED BLOOD COUNT 4.88 M/UL (4.20-5.40); RED CELL DISTRIBUTION WIDTH 11.9 % (11.6-14.8); WHITE BLOOD COUNT 9.6 K/UL (4.8-10.8)
[2018-06-07] MEDS: Morphine Sulfate 2mg/ml Inj IVP PRN ×2 (06:36→07:15)
[2018-06-07 07:00] LABS: ALANINE AMINOTRANSFERASE 18 U/L (12-78); ALBUMIN 2.9 G/DL (3.4-5.0); ALBUMIN/GLOBULIN RATIO 0.7 (1.0-2.7); ALKALINE PHOSPHATASE 95 U/L (46-116); ANION GAP 8 mmol/L (5-15); ASPARTATE AMINO TRANSFERASE 13 U/L (15-37); BILIRUBIN,TOTAL 0.5 MG/DL (0.2-1.0); BLOOD UREA NITROGEN 6 mg/dL (7-18); CALCIUM 8.6 MG/DL (8.5-10.1); CARBON DIOXIDE 28 MMOL/L (21-32); CHLORIDE 105 MMOL/L (98-107); CREATININE 0.9 MG/DL (0.55-1.30); POTASSIUM 3.8 MMOL/L (3.5-5.1); SODIUM 140 MMOL/L (136-145)
[2018-06-07 07:37] LABS: PHOSPHORUS 3.9 MG/DL (2.5-4.9)
[2018-06-07] MEDS: Pantoprazole Inj IVP SCH (07:50)
[2018-06-07] MEDS: Docusate 100mg cap ORAL SCH ×2 (07:50→17:09)
[2018-06-07] MEDS: Heparin 5000 units/ml inj SUBQ SCH (07:53)
[2018-06-07 08:00] VITALS: BP 110/65
--- NOTE | 2018-06-07 10:11 | 48 Hour Post Anesthesia Eval ---
Post Anesthesia Evaluation Procedure: Emergency lap appy Date of Evaluation: Jun 07, 2018 Time of Evaluation: 10:10 Blood Pressure Systolic: 104 0: 65 Pulse Rate: 72 Respiratory Rate: 22 Temperature (Fahrenheit): 97.6 O2 Sat by Pulse Oximetry: 97 Airway: patent Nausea: No Vomiting: No Pain Intensity: 3 Hydration Status: adequate Cardiopulmonary Status: stable Mental Status/LOC: patient returned to baseline Follow-up Care/Observations: n/a Post-Anesthesia Complications: none Follow-up care needed: ready to discharge Ron Rodriguez MD Jun 07, 2018 10:11
--- NOTE | 2018-06-07 11:44 | Pulmonology Progress Note ---
Assessment/Plan Problems: (1) Acute appendicitis Assessment/Plan improving advance diet dc home when ok with surgery Subjective ROS Limited/Unobtainable: No Constitutional: Reports: no symptoms Respiratory: Reports: no symptoms Allergies: Coded Allergies: No Known Allergies (Unverified , 06/05/18) Objective Last 24 Hour Vital Signs Date Time Temp Pulse Resp B/P (MAP) Pulse Ox O2 Delivery O2 Flow Rate FiO2 06/07/18 10:11 207.7 72 22 97 06/07/18 09:57 97.9 06/07/18 09:27 97.9 06/07/18 09:00 Room Air 06/07/18 08:00 99.1 85 18 110/65 (80) 96 99.1 06/07/18 04:00 97.9 80 19 118/70 (86) 98 97.9 06/07/18 00:00 99.6 89 20 115/75 (88) 99 99.6 06/06/18 21:00 Room Air 06/06/18 20:00 99.6 81 21 115/74 (88) 98 99.6 06/06/18 16:00 97.3 91 20 135/102 (113) 95 97.3 91 06/06/18 14:36 97.7 88 20 117/79 (92) 96 97.7 06/06/18 12:00 98.1 75 20 116/65 (82) 96 98.1 75 Intake and Output 06/06/18 06/07/18 19:00 07:00 Intake Total 1040 ml 1540 ml Output Total 20 ml Balance 1020 ml 1540 ml Intake Oral 240 ml 480 ml IV Total 800 ml 1060 ml Output Estimated Blood Loss 20 ml # Voids 3 2 General Appearance: WD/WN HEENT: normocephalic, atraumatic, PERRL Respiratory/Chest: lungs clear Breasts: no masses Cardiovascular: normal peripheral pulses Abdomen: normal bowel sounds, no organomegaly Genitourinary: normal external genitalia Extremities: no clubbing Laboratory Tests 06/07/18 05:45: White Blood Count 9.6, Red Blood Count 4.88, Hemoglobin 12.7, Hematocrit 39.7, Mean Corpuscular Volume 81, Mean Corpuscular Hemoglobin 26.0L, Mean Corpuscular Hemoglobin Concent 32.0, Red Cell Distribution Width 11.9, Platelet Count 296, Mean Platelet Volume 6.8, Neutrophils (%) (Auto) 72.4, Lymphocytes (%) (Auto) 15.0L, Monocytes (%) (Auto) 11.4H, Eosinophils (%) (Auto) 0.4, Basophils (%) ( Auto) 0.8, Sodium Level 140, Potassium Level 3.8, Chloride Level 105, Carbon Dioxide Level 28, Anion Gap 8, Blood Urea Nitrogen 6L, Creatinine 0.9, Estimat Glomerular Filtration Rate > 60, Glucose Level 97, Calcium Level 8.6, Phosphorus Level 3.9, Magnesium Level 1.7L, Total Bilirubin 0.5, Aspartate Amino Transf (AST/SGOT) 13L, Alanine Aminotransferase (ALT/SGPT) 18, Alkaline Phosphatase 95, Total Protein 6.9, Albumin 2.9L, Globulin 4.0, Albumin/Globulin Ratio 0.7L Current Medications Medications (Trade) Dose Ordered Sig/Peyton Route PRN Reason Start Time Stop Time Status Last Admin Dose Admin Acetaminophen (Tylenol) 650 mg Q6H PRN ORAL Mild Pain (Pain Scale 1-3) 06/06/18 10:58 07/06/18 10:57 Acetaminophen/ Hydrocodone Bitart (Geary 10/325) 1 tab Q4H PRN ORAL Severe Pain (Pain Scale 7-10) 06/06/18 10:59 06/13/18 10:58 Acetaminophen/ Hydrocodone Bitart (Geary 5/325) 1 tab Q4H PRN ORAL Moderate Pain (Pain Scale 4-6) 06/06/18 10:59 06/13/18 10:58 Al Hydroxide/Mg Hydroxide (Mylanta II) 30 ml Q6H PRN ORAL dyspepsia 06/05/18 20:45 07/05/18 20:44 Al Hydroxide/Mg Hydroxide (Mylanta) 15 ml Q6H PRN ORAL DYSPEPSIA 06/06/18 11:02 07/06/18 11:01 Dextrose (Dextrose 50%) 25 ml STAT PRN IV Hypoglycemia 06/05/18 20:45 07/05/18 20:44 Dextrose (Dextrose 50%) 50 ml STAT PRN IV Hypoglycemia 06/05/18 20:45 07/05/18 20:44 Dextrose/Lactated Ringer's 1,000 ml @ 100 mls/hr Q10H IV 06/05/18 20:30 07/05/18 20:29 06/06/18 16:11 Diphenhydramine HCl (Benadryl) 12.5 mg Q6H PRN IVP Itching/Pruritis 06/06/18 11:03 07/06/18 11:02 Docusate Sodium (Colace) 100 mg TWICE A DAY ORAL 06/06/18 18:00 07/06/18 17:59 06/07/18 07:50 Heparin Sodium (Porcine) (Heparin 5000 units/ml) 5,000 units EVERY 12 HOURS SUBQ 06/05/18 21:00 07/05/18 20:59 06/07/18 07:53 Ketorolac Tromethamine (Toradol 30mg) 30 mg Q6H PRN IV For Breakthrough pain 06/06/18 11:00 06/11/18 10:59 Magnesium Hydroxide (Mom) 30 ml BIDPRN PRN ORAL Constipation 06/06/18 11:01 07/06/18 11:00 Magnesium Sulfate 100 ml @ 100 mls/hr Q1H IVPB 06/07/18 10:00 06/07/18 11:59 06/07/18 10:24 Morphine Sulfate (Morphine Sulfate) 1 mg Q4H PRN IVP pain scale 1-3 06/06/18 10:57 06/13/18 10:56 06/07/18 09:27 Morphine Sulfate (Morphine Sulfate) 2 mg Q4H PRN IVP pain scale 4-6 06/06/18 10:56 06/13/18 10:55 06/07/18 07:15 Morphine Sulfate (Morphine Sulfate) 4 mg Q4H PRN IVP pain score 7-10 06/06/18 10:56 06/13/18 10:55 06/06/18 12:10 Nitroglycerin (Ntg) 0.4 mg Q5M X 3 DOSES PRN SL Prn Chest Pain 06/05/18 20:45 07/05/18 20:44 Ondansetron HCl (Zofran) 4 mg Q6H PRN IVP Nausea & Vomiting 06/06/18 11:00 07/06/18 10:59 Pantoprazole (Protonix) 40 mg DAILY IVP 06/06/18 09:00 07/06/18 08:59 06/07/18 07:50 Polyethylene Glycol (Miralax) 17 gm HSPRN PRN ORAL Constipation 06/06/18 21:00 07/05/18 20:44 Temazepam (Restoril) 15 mg HSPRN PRN ORAL Insomnia 06/05/18 20:45 06/12/18 20:44 Cain Laird MD Jun 07, 2018 11:44
[2018-06-07 12:00] VITALS: BP 102/49
--- NOTE | 2018-06-07 13:15 | GI Progress Note ---
Assessment/Plan Problems: (1) Acute appendicitis ICD Codes: K35.80 - Unspecified acute appendicitis SNOMED: 27646670 Qualifiers: Qualified Codes: K35.80 - Unspecified acute appendicitis (2) Abdominal pain ICD Codes: R10.9 - Unspecified abdominal pain SNOMED: 57898712 Qualifiers: Qualified Codes: R10.33 - Periumbilical pain Status: stable Status Narrative Discussed with Dr. Bird. Assessment/Plan adv to soft diet today zofran prn pain mgmt fu surgicals recs okay for DC per GI standpoint if tolerates regular diet bowel regime fu labs The patient was seen and examined at bedside and all new and available data was reviewed in the patients chart. I agree with the above findings, impression and plan. (Patient seen earlier today. Signature stamp does not reflect patient encounter time.). - Kit Bird MD Subjective Subjective nausea abdominal pain minimal wants to go home Objective Last 24 Hour Vital Signs Date Time Temp Pulse Resp B/P (MAP) Pulse Ox O2 Delivery O2 Flow Rate FiO2 06/07/18 13:09 98.2 06/07/18 12:00 98.2 81 18 102/49 (66) 96 98.2 06/07/18 10:11 207.7 72 22 97 06/07/18 09:57 97.9 06/07/18 09:27 97.9 06/07/18 09:00 Room Air 06/07/18 08:00 99.1 85 18 110/65 (80) 96 99.1 06/07/18 04:00 97.9 80 19 118/70 (86) 98 97.9 06/07/18 00:00 99.6 89 20 115/75 (88) 99 99.6 06/06/18 21:00 Room Air 06/06/18 20:00 99.6 81 21 115/74 (88) 98 99.6 06/06/18 16:00 97.3 91 20 135/102 (113) 95 97.3 91 06/06/18 14:36 97.7 88 20 117/79 (92) 96 97.7 Intake and Output 06/06/18 06/07/18 19:00 07:00 Intake Total 1040 ml 1640 ml Output Total 20 ml Balance 1020 ml 1640 ml Intake Oral 240 ml 480 ml IV Total 800 ml 1160 ml Output Estimated Blood Loss 20 ml # Voids 3 2 Laboratory Tests Test 06/07/18 05:45 White Blood Count 9.6 K/UL (4.8-10.8) Red Blood Count 4.88 M/UL (4.20-5.40) Hemoglobin 12.7 G/DL (12.0-16.0) Hematocrit 39.7 % (37.0-47.0) Mean Corpuscular Volume 81 FL (80-99) Mean Corpuscular Hemoglobin 26.0 PG (27.0-31.0) L Mean Corpuscular Hemoglobin Concent 32.0 G/DL (32.0-36.0) Red Cell Distribution Width 11.9 % (11.6-14.8) Platelet Count 296 K/UL (150-450) Mean Platelet Volume 6.8 FL (6.5-10.1) Neutrophils (%) (Auto) 72.4 % (45.0-75.0) Lymphocytes (%) (Auto) 15.0 % (20.0-45.0) L Monocytes (%) (Auto) 11.4 % (1.0-10.0) H Eosinophils (%) (Auto) 0.4 % (0.0-3.0) Basophils (%) (Auto) 0.8 % (0.0-2.0) Sodium Level 140 MMOL/L (136-145) Potassium Level 3.8 MMOL/L (3.5-5.1) Chloride Level 105 MMOL/L (98-107) Carbon Dioxide Level 28 MMOL/L (21-32) Anion Gap 8 mmol/L (5-15) Blood Urea Nitrogen 6 mg/dL (7-18) L Creatinine 0.9 MG/DL (0.55-1.30) Estimat Glomerular Filtration Rate > 60 mL/min (>60) Glucose Level 97 MG/DL (74-106) Calcium Level 8.6 MG/DL (8.5-10.1) Phosphorus Level 3.9 MG/DL (2.5-4.9) Magnesium Level 1.7 MG/DL (1.8-2.4) L Total Bilirubin 0.5 MG/DL (0.2-1.0) Aspartate Amino Transf (AST/SGOT) 13 U/L (15-37) L Alanine Aminotransferase (ALT/SGPT) 18 U/L (12-78) Alkaline Phosphatase 95 U/L (46-116) Total Protein 6.9 G/DL (6.4-8.2) Albumin 2.9 G/DL (3.4-5.0) L Globulin 4.0 g/dL Albumin/Globulin Ratio 0.7 (1.0-2.7) L Height (Feet): 5 Height (Inches): 5.00 Weight (Pounds): 160 General Appearance: WD/WN, no apparent distress, alert Cardiovascular: normal rate Respiratory/Chest: normal breath sounds, no respiratory distress Abdominal Exam: normal bowel sounds, non tender, soft Extremities: normal range of motion, non-tender Ruby Cabrera NP Jun 07, 2018 13:15
--- NOTE | 2018-06-07 13:15 | General Progress Note ---
Progress Note Progress Note Surgery: doing well. shoulder pain which is improving. tolerating diet. passing flatus. ambulatory. afebrile, HD stable, recovering s/p lap appy -rx written -instructions given -d/c home f/u next week Pilo Meeks Jun 07, 2018 13:15
[2018-06-07] MEDS ORDERED: NORCO 5-325 TA1 EACH ORAL (13:28)
[2018-06-07] MEDS ORDERED: COLACE100 MG ORAL (13:29)
--- NOTE | 2018-06-07 15:49 | General Progress Note ---
Assessment/Plan Problem List: (1) Abdominal pain ICD Codes: R10.9 - Unspecified abdominal pain SNOMED: [id number] Qualifiers: Qualified Codes: R10.33 - Periumbilical pain (2) Acute appendicitis ICD Codes: K35.80 - Unspecified acute appendicitis SNOMED: [id number] Qualifiers: Qualified Codes: K35.80 - Unspecified acute appendicitis Status: stable, progressing Assessment/Plan abx pain control adv diet if tolerate cbc bmp am dc plan Subjective Constitutional: Reports: weakness Allergies: Coded Allergies: No Known Allergies (Unverified , 06/05/18) All Systems: reviewed and negative except above Subjective calm in bed tolerating soup Objective Last 24 Hour Vital Signs Date Time Temp Pulse Resp B/P (MAP) Pulse Ox O2 Delivery O2 Flow Rate FiO2 06/07/18 14:08 98.2 06/07/18 13:09 98.2 06/07/18 12:00 98.2 81 18 102/49 (66) 96 98.2 06/07/18 10:11 207.7 72 22 97 06/07/18 09:57 97.9 06/07/18 09:27 97.9 06/07/18 09:00 Room Air 06/07/18 08:00 99.1 85 18 110/65 (80) 96 99.1 06/07/18 04:00 97.9 80 19 118/70 (86) 98 97.9 06/07/18 00:00 99.6 89 20 115/75 (88) 99 99.6 06/06/18 21:00 Room Air 06/06/18 20:00 99.6 81 21 115/74 (88) 98 99.6 06/06/18 16:00 97.3 91 20 135/102 (113) 95 97.3 91 Intake and Output 06/06/18 06/07/18 19:00 07:00 Intake Total 1040 ml 1640 ml Output Total 20 ml Balance 1020 ml 1640 ml Intake Oral 240 ml 480 ml IV Total 800 ml 1160 ml Output Estimated Blood Loss 20 ml # Voids 3 2 Laboratory Tests 06/07/18 05:45: White Blood Count 9.6, Red Blood Count 4.88, Hemoglobin 12.7, Hematocrit 39.7, Mean Corpuscular Volume 81, Mean Corpuscular Hemoglobin 26.0L, Mean Corpuscular Hemoglobin Concent 32.0, Red Cell Distribution Width 11.9, Platelet Count 296, Mean Platelet Volume 6.8, Neutrophils (%) (Auto) 72.4, Lymphocytes (%) (Auto) 15.0L, Monocytes (%) (Auto) 11.4H, Eosinophils (%) (Auto) 0.4, Basophils (%) ( Auto) 0.8, Sodium Level 140, Potassium Level 3.8, Chloride Level 105, Carbon Dioxide Level 28, Anion Gap 8, Blood Urea Nitrogen 6L, Creatinine 0.9, Estimat Glomerular Filtration Rate > 60, Glucose Level 97, Calcium Level 8.6, Phosphorus Level 3.9, Magnesium Level 1.7L, Total Bilirubin 0.5, Aspartate Amino Transf (AST/SGOT) 13L, Alanine Aminotransferase (ALT/SGPT) 18, Alkaline Phosphatase 95, Total Protein 6.9, Albumin 2.9L, Globulin 4.0, Albumin/Globulin Ratio 0.7L Height (Feet): 5 Height (Inches): 5.00 Weight (Pounds): 160 General Appearance: alert EENT: normal ENT inspection Neck: normal alignment Cardiovascular: normal peripheral pulses, normal rate, regular rhythm Respiratory/Chest: chest wall non-tender, lungs clear, normal breath sounds Abdomen: soft, hypoactive bowel sounds Extremities: normal inspection Edema: no edema noted Arm (L), no edema noted Arm (R), no edema noted Leg (L), no edema noted Leg (R), no edema noted Pedal (L), no edema noted Pedal (R), no edema noted Generalized Neurologic: responsive, motor weakness Skin: normal pigmentation, warm/dry Cristian Coffey DO Jun 07, 2018 15:49
[2018-06-07 16:00] VITALS: BP 110/68
--- NOTE | 2018-06-07 18:44 | Infectious Diseases Prog Note ---
Assessment/Plan Assessment/Plan Abx: Ancef 06/06- Zosyn 06/06 Assessment: Acute uncomplicated appendicitis -s/p lap appendectomy 06/06 -CT abd/p: Limited exam without intravenous and oral contrast. Within these limitations: CT CHEST:* No focal airspace consolidation, pleural effusion or pneumothorax. * No acute fracture. CT ABDOMEN/PELVIS:* Midportion of the appendix is mildly prominent, measuring up to 7-8 mm in thickness, with questionable minimal adjacent stranding. Remaining portions of the appendix are normal in caliber. Finding's are equivocal. Correlate clinically to assess for the possibility of very early appendicitis. No associated small bowel obstruction, abscess or free intraperitoneal air. Mild leukocytosis, resolved -afebrile R shoulder injection site reaction- no signs of infection Plan: -Continue to monitor off abx; ok to discharge from ID perspective -06/06 SP Zosyn #1, ANcef #2 -ice pack for R shoulder -f/u cx -Monitor CBC/CMP, temperatures -wound care per hospital protocol -Sx f/u Thank you for this consultation. Will continue to follow along with you. Discussed with RN. Subjective Allergies: Coded Allergies: No Known Allergies (Unverified , 06/05/18) Objective Vital Signs Last 24 Hour Vital Signs Date Time Temp Pulse Resp B/P (MAP) Pulse Ox O2 Delivery O2 Flow Rate FiO2 06/07/18 16:00 98.2 77 18 110/68 (82) 95 98.2 06/07/18 14:08 98.2 06/07/18 13:09 98.2 06/07/18 12:00 98.2 81 18 102/49 (66) 96 98.2 06/07/18 10:11 207.7 72 22 97 06/07/18 09:57 97.9 06/07/18 09:27 97.9 06/07/18 09:00 Room Air 06/07/18 08:00 99.1 85 18 110/65 (80) 96 99.1 06/07/18 04:00 97.9 80 19 118/70 (86) 98 97.9 06/07/18 00:00 99.6 89 20 115/75 (88) 99 99.6 06/06/18 21:00 Room Air 06/06/18 20:00 99.6 81 21 115/74 (88) 98 99.6 Height (Feet): 5 Height (Inches): 5.00 Weight (Pounds): 160 Objective General Appearance: WD/WN, no apparent distress, alert Lines, tubes and drains: peripheral HEENT: normocephalic, atraumatic, PERRL Neck: normal inspection Respiratory/Chest: lungs clear, normal breath sounds, no respiratory distress, no accessory muscle use, other - right lower thoracic rib tenderness Cardiovascular/Chest: normal rate, regular rhythm Abdomen: normal bowel sounds, non tender, soft, no organomegaly, no mass, other - discomfort in mid abdomen Extremities: normal inspection Skin Exam: normal pigmentation, warm/dry Neurologic: alert, oriented x 3 Laboratory Tests Test 06/07/18 05:45 White Blood Count 9.6 K/UL (4.8-10.8) Red Blood Count 4.88 M/UL (4.20-5.40) Hemoglobin 12.7 G/DL (12.0-16.0) Hematocrit 39.7 % (37.0-47.0) Mean Corpuscular Volume 81 FL (80-99) Mean Corpuscular Hemoglobin 26.0 PG (27.0-31.0) L Mean Corpuscular Hemoglobin Concent 32.0 G/DL (32.0-36.0) Red Cell Distribution Width 11.9 % (11.6-14.8) Platelet Count 296 K/UL (150-450) Mean Platelet Volume 6.8 FL (6.5-10.1) Neutrophils (%) (Auto) 72.4 % (45.0-75.0) Lymphocytes (%) (Auto) 15.0 % (20.0-45.0) L Monocytes (%) (Auto) 11.4 % (1.0-10.0) H Eosinophils (%) (Auto) 0.4 % (0.0-3.0) Basophils (%) (Auto) 0.8 % (0.0-2.0) Sodium Level 140 MMOL/L (136-145) Potassium Level 3.8 MMOL/L (3.5-5.1) Chloride Level 105 MMOL/L (98-107) Carbon Dioxide Level 28 MMOL/L (21-32) Anion Gap 8 mmol/L (5-15) Blood Urea Nitrogen 6 mg/dL (7-18) L Creatinine 0.9 MG/DL (0.55-1.30) Estimat Glomerular Filtration Rate > 60 mL/min (>60) Glucose Level 97 MG/DL (74-106) Calcium Level 8.6 MG/DL (8.5-10.1) Phosphorus Level 3.9 MG/DL (2.5-4.9) Magnesium Level 1.7 MG/DL (1.8-2.4) L Total Bilirubin 0.5 MG/DL (0.2-1.0) Aspartate Amino Transf (AST/SGOT) 13 U/L (15-37) L Alanine Aminotransferase (ALT/SGPT) 18 U/L (12-78) Alkaline Phosphatase 95 U/L (46-116) Total Protein 6.9 G/DL (6.4-8.2) Albumin 2.9 G/DL (3.4-5.0) L Globulin 4.0 g/dL Albumin/Globulin Ratio 0.7 (1.0-2.7) L Current Medications Medications (Trade) Dose Ordered Sig/Peyton Route PRN Reason Start Time Stop Time Status Last Admin Dose Admin Acetaminophen (Tylenol) 650 mg Q6H PRN ORAL Mild Pain (Pain Scale 1-3) 06/06/18 10:58 07/06/18 10:57 Acetaminophen/ Hydrocodone Bitart (Distant 10/325) 1 tab Q4H PRN ORAL Severe Pain (Pain Scale 7-10) 06/06/18 10:59 06/13/18 10:58 06/07/18 13:09 Acetaminophen/ Hydrocodone Bitart (Distant 5/325) 1 tab Q4H PRN ORAL Moderate Pain (Pain Scale 4-6) 06/06/18 10:59 06/13/18 10:58 Al Hydroxide/Mg Hydroxide (Mylanta II) 30 ml Q6H PRN ORAL dyspepsia 06/05/18 20:45 07/05/18 20:44 Al Hydroxide/Mg Hydroxide (Mylanta) 15 ml Q6H PRN ORAL DYSPEPSIA 06/06/18 11:02 07/06/18 11:01 Dextrose (Dextrose 50%) 25 ml STAT PRN IV Hypoglycemia 06/05/18 20:45 07/05/18 20:44 Dextrose (Dextrose 50%) 50 ml STAT PRN IV Hypoglycemia 06/05/18 20:45 07/05/18 20:44 Diphenhydramine HCl (Benadryl) 12.5 mg Q6H PRN IVP Itching/Pruritis 06/06/18 11:03 07/06/18 11:02 Docusate Sodium (Colace) 100 mg TWICE A DAY ORAL 06/06/18 18:00 07/06/18 17:59 06/07/18 17:09 Heparin Sodium (Porcine) (Heparin 5000 units/ml) 5,000 units EVERY 12 HOURS SUBQ 06/05/18 21:00 07/05/18 20:59 06/07/18 07:53 Ketorolac Tromethamine (Toradol 30mg) 30 mg Q6H PRN IV For Breakthrough pain 06/06/18 11:00 06/11/18 10:59 Magnesium Hydroxide (Mom) 30 ml BIDPRN PRN ORAL Constipation 06/06/18 11:01 07/06/18 11:00 Morphine Sulfate (Morphine Sulfate) 1 mg Q4H PRN IVP pain scale 1-3 06/06/18 10:57 06/13/18 10:56 06/07/18 09:27 Morphine Sulfate (Morphine Sulfate) 2 mg Q4H PRN IVP pain scale 4-6 06/06/18 10:56 06/13/18 10:55 06/07/18 07:15 Morphine Sulfate (Morphine Sulfate) 4 mg Q4H PRN IVP pain score 7-10 06/06/18 10:56 06/13/18 10:55 06/06/18 12:10 Nitroglycerin (Ntg) 0.4 mg Q5M X 3 DOSES PRN SL Prn Chest Pain 06/05/18 20:45 07/05/18 20:44 Ondansetron HCl (Zofran) 4 mg Q6H PRN IVP Nausea & Vomiting 06/06/18 11:00 07/06/18 10:59 Pantoprazole (Protonix) 40 mg DAILY IVP 06/06/18 09:00 07/06/18 08:59 06/07/18 07:50 Polyethylene Glycol (Miralax) 17 gm HSPRN PRN ORAL Constipation 06/06/18 21:00 07/05/18 20:44 Temazepam (Restoril) 15 mg HSPRN PRN ORAL Insomnia 06/05/18 20:45 06/12/18 20:44 Beatrice Aparicio M.D. Jun 07, 2018 18:44
--- NOTE | 2018-06-08 09:39 | Discharge Summary ---
Discharge Summary Discharge Summary _ DATE OF ADMISSION: 06/05/2018 DATE OF DISCHARGE: 06/07/2018 REASON FOR ADMISSION: 23 years old female without significant past medical history, presented with complaint of right lower rib cage area. Patient reported pain for one week. She reported hitting with knee the same area 2 days prior to start of pain. Patient also reported pain after exercising at the gym. She denied fevers, chills; she denied nausea, vomiting, diarrhea; she denied lower abdominal pain. Vital signs were stable. Laboratory workup revealed leukocytosis WBC 13, stable hemoglobin and hematocrit. Urine test was negative. Electrolytes, LFT, renal parameters, lipase are all within normal limits. CT of the abdomen and pelvis revealed prominence of midportion of the appendix , measuring up to 7-8 mm in thickness, with questionable minimal adjacent stranding. Remaining portions of the appendix were normal in caliber. Possible early appendicitis. No associated small bowel obstruction, abscess or free intraperitoneal air. CT of the chest revealed no focal airspace consolidation, pleural effusion or pneumothorax. No acute fracture. Patient admitted with diagnosis of abdominal pain ,acute appendicitis CONSULTANTS: pulmonary Dr. Laird ID specialist Dr. Mack GI specialist Dr. Bird surgery Dr. Meeks [facility] COURSE: Patient admitted to the floor. Patient started on the IV hydration. Patient was kept nothing by mouth. Pain management was addressed. Surgery consult was requested. Patient subsequently undergone laparoscopic appendectomy on 06/06. Course of recovery was uneventful. Pain management provided. Patient slowly started on diet and was advanced as tolerated. Antiemetics were on board as needed. Patient was able to tolerate diet. Patient was passing flatus. Patient was ambulatory. Bowel regimen instituted. Pain was controlled. Infectious disease doctor followed . Patient status post prophylactic antibiotics perioperatively. Leukocytosis resolved, afebrile, no evidence of infection. Infectious disease doctor recommended to keep patient off antibiotics. Scripts and discharge instruction provided. Patient was stable for discharge home. FINAL DIAGNOSES: Acute uncomplicated appendicitis Abdominal pain due to acute appendicitis, resolved Status post 06/06 laparoscopic appendectomy DISCHARGE MEDICATIONS: See Medication Reconciliation list. Scripts provided DISCHARGE INSTRUCTIONS: Patient was discharged home . Follow-up with surgeon as advised. I have been assigned to dictate discharge summary for this account. I was not involved in the patient's management. Annette Perez NP Jun 08, 2018 09:39
== END 2018-06-07 19:00 | disposition home or self-care (01) | DRG 343 ==
LOC: EMR 15:06 → 3E 18:00 → EDBEDREQ 20:07
PROC: 0DTJ4ZZ Resection of Appendix, Percutaneous Endoscopic Approach (ICD-10-PCS; principal; 2018-06-06 08:00)
DX: K35.80 Unspecified acute appendicitis (principal)
CPT/HCPCS: 36415; 71250; 74176; 80053; 81025; 82150; 83690; 83735; 84100; 85025; 85730; 94003; 94150; J2250; J2405